=== PATIENT | female | born 1980 | race Caucasian/White ===

== ENCOUNTER 2023-01-22 09:21 | Emergency (ER) | payer OTHER ==
[2023-01-22 09:38] VITALS: O2SAT 100
--- NOTE | 2023-01-22 11:18 | ED Physician Documentation ---
History of Present Illness - Stated complaint Stated Complaint: LFT CALF PX - Chief complaint Chief Complaint: Ext Problem - History obtained from History obtained from: Patient - Additonal information Additional information: The patient comes to the emergency department chief complaint of left calf pain. She states she just noticed it this morning. She denies any injury. No swelling. No fevers or chills. No redness. 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 She states that she has not had any recent immobility. No shortness of breath or chest pain. No history of PE. No other complaints at this time. PD PAST MEDICAL HISTORY - Past Medical History Past Medical History: Yes Other Past Medical History: factor 5 leiden - Past Surgical History Past Surgical History: Yes Ortho: Other - Present Medications Home Medications: Ambulatory Orders Medication Instructions Recorded Confirmed No Known Home Medications 01/22/23 01/22/23 - Allergies Allergies/Adverse Reactions: Allergies Allergy/AdvReac Type Severity Reaction Status Date / Time Sulfa (Sulfonamide Allergy Hives Verified 01/22/23 09:44 Antibiotics) - Social History Does the pt smoke?: No Smoking Status: Never smoker Does the pt drink ETOH?: Yes ETOH Use: Wine Does the pt have substance abuse?: No PD ED PE NORMAL - Vitals Vital signs reviewed: Yes - General General: Alert and oriented X 3, No acute distress, Well developed/nourished - HEENT HEENT: Atraumatic, PERRL, EOMI, Moist mucous membranes - Neck Neck: Supple, no meningeal sign - Cardiac Cardiac: RRR, No murmur - Respiratory Respiratory: No respiratory distress, Clear bilaterally - Derm Derm: Normal color, Warm and dry, No rash - Extremities Extremities: No deformity, Other (No lower extremity edema. Mild tenderness to palpation over left calf. No asymmetry.) - Neuro Neuro: Alert and oriented X 3 - Psych Psych: Normal mood, Normal affect Results - Vitals Vitals: Vital Signs - 24 hr 01/22/23 01/22/23 09:30 11:32 Temperature 36.7 C Heart Rate 78 61 Respiratory 20 18 Rate Blood Pressure 134/68 H 119/85 H O2 Saturation 100 100 Oxygen O2 Source Room air - Rads (name of study) Venous duplex left lower extremity. Relevant Findings:: Final report received, See rad report (Negative) PD Medical Decision Making - ED course Complexity details: reviewed results, re-evaluated patient, considered differential, d/w patient ED course: I ordered an ultrasound of the patient's left lower extremity and this was found to be negative. I discussed the findings with the patient. We have discussed the usual indications for follow-up and return. No emergent condition identified. Departure - Departure Disposition: 01 Home, Self Care Clinical Impression: Pain of lower extremity Qualifiers: Laterality: left Qualified Code(s): M79.605 - Pain in left leg Condition: Stable Instructions: ED Muscle Pain Leg Cramps Comments: Your ultrasound looks goodno blood clot. Most likely you have strained part o f the calf muscle. This should get better on its own in the next several days to a couple of weeks. Forms: PCP List Discharge Date/Time: 01/22/23 11:32
[2023-01-22 11:32] VITALS: BP 119/85
--- NOTE | 2023-01-22 11:43 | Ultrasound Report ---
PROCEDURE: Duplex Ext Veins Left INDICATIONS: pain/swelling TECHNIQUE: Real-time imaging, as well as color and pulse Doppler interrogation, were performed of the lower extr emity deep veins from the inguinal ligament to the popliteal fossa. Attempted visualization of the ca lf veins was performed. COMPARISON: None. FINDINGS: The deep veins are normally compressible, and free of intraluminal thrombus. Color and pu lse Doppler demonstrate normal phasic intraluminal flow. There is normal augmentation response to di stal compression maneuver. IMPRESSION: No deep venous thrombosis of the visualized lower extremity. Reviewed by: Leodan Nielson MD on 01/22/2023 11:42 AM PDT Approved by: Leodan Nielson MD on 01/22/2023 11:42 AM PDT Station ID: [id number]
== END 2023-01-22 11:32 | disposition home or self-care (01) ==
LOC: ED 09:21
DX: M79.662 Pain in left lower leg (principal)
CPT/HCPCS: 99283; 99284